=== PATIENT | female | born 1955 | race Caucasian/White ===

== ENCOUNTER 2017-01-24 11:20 | Outpatient (CLI) | payer OTHER ==
[2017-01-24 11:54] LABS: BASOPHILS % (AUTO) 0.1 %; HCT - HEMATOCRIT 38.7 % (37.0-47.0); HGB - HEMOGLOBIN 12.6 g/dL (12.0-16.0); LYMPHOCYTES # (AUTO) 1.3 10^3/uL (1.5-3.5); LYMPHOCYTES % (AUTO) 24.2 %; MEAN CORPUSCULAR HEMOGLOBIN 29.3 pg (27.0-31.0); MEAN CORPUSCULAR HGB CONC 32.6 g/dL (32.0-36.0); MEAN CORPUSCULAR VOLUME 89.8 fL (81.0-99.0); MEAN PLATELET VOLUME 9.9 fL (7.9-10.8); MONOCYTES # (AUTO) 0.5 10^3/uL (0.0-1.0); MONOCYTES % (AUTO) 9.3 %; NEUTROPHILS # (AUTO) 3.5 10^3/uL (1.5-6.6); NEUTROPHILS % (AUTO) 66.4 %; RED BLOOD COUNT 4.31 10^6/uL (4.20-5.40); UNCORRECTED WHITE BLOOD COUNT 5.2 x10^3/uL; WHITE BLOOD COUNT 5.2 x10^3/uL (4.8-10.8)
[2017-01-24 12:07] LABS: HEMOGLOBIN A1C 0.48 g/dL
[2017-01-24 12:30] LABS: ALBUMIN/GLOBULIN RATIO 1.5 (1.0-2.2); BILIRUBIN,TOTAL 0.7 mg/dL (0.2-1.0); BUN - BLOOD UREA NITROGEN 21 mg/dL (6-20); CALCIUM 8.9 mg/dL (8.5-10.3); CARBON DIOXIDE - CO2 29 mmol/L (21-32); CHLORIDE 105 mmol/L (101-111); CHOL/HDL RATIO 4.8 (<4.4); CHOLESTEROL 213 mg/dL; CREATININE 0.7 mg/dL (0.4-1.0); GFR - MDRD 86 (>89); GLUCOSE 98 mg/dL (70-100); HDL CHOLESTEROL 44 mg/dL; LDL/HDL RATIO 3.5 (<4.4); POTASSIUM 3.4 mmol/L (3.5-5.0); SODIUM 140 mmol/L (135-145); TOTAL PROTEIN 6.9 g/dL (6.7-8.2); TRIGLYCERIDES 87 mg/dL; VLDL CHOLESTEROL 17 mg/dL
== END 2017-01-24 11:21 | disposition home or self-care (01) ==
LOC: LAB 11:20
PROVIDERS: ATTEND Family Medicine
DX: Z00.00 Encounter for general adult medical examination without abnormal findings (principal); E78.5 Hyperlipidemia, unspecified
CPT/HCPCS: 36415; 80053; 80061; 83036; 84443; 85025

== ENCOUNTER 2017-01-30 14:17 | Outpatient (CLI) | payer OTHER ==
--- NOTE | 2017-01-31 19:15 | Mammography Report ---
DIGITAL SCREENING MAMMOGRAM: 01/30/2017 CLINICAL INDICATION: A 61-year-old with family history of breast cancer, history of benign left frances st biopsy for screening. COMPARISON: 10/2015, 05/2013. TECHNIQUE: Routine CC and MLO projections were obtained of the breasts. The breasts again demonstrate scattered fibroglandular densities bilaterally. Post-biopsy changes in the left breast are stable. Coarse and punctate, typically benign calcifications are present. No s uspicious masses, clustered microcalcifications, or regions of architectural distortion are identifie d. IMPRESSION: BENIGN FINDINGS. RECOMMENDATION: ROUTINE ANNUAL SCREENING UNLESS OTHERWISE CLINICALLY INDICATED. BIRADS CATEGORY: 2, BENIGN FINDINGS. STANDARD QUALIFYING STATEMENTS 1. This examination was reviewed with the aid of Computed-Aided Detection (CAD). 2. A negative or benign imaging report should not delay biopsy if clinically suspicious findings are present. Consider surgical consultation if warranted. More than 5% of cancers are not identified b y imaging. 3. Dense breasts may obscure an underlying neoplasm. JOB #: [id number] EXT JOB #:[id number]
== END 2017-01-30 14:18 | disposition home or self-care (01) ==
LOC: DI 14:17
PROVIDERS: ATTEND Family Medicine
DX: Z12.39 Encounter for other screening for malignant neoplasm of breast (principal); Z80.3 Family history of malignant neoplasm of breast
CPT/HCPCS: 77067

== ENCOUNTER 2018-04-14 11:30 | Outpatient (CLI) | payer OTHER ==
[2018-04-14 12:14] LABS: HB2 TOTAL 13.6 g/dL; HEMOGLOBIN A1C 0.47 g/dL; HEMOGLOBIN A1C % 5.3 % (4.6-6.2)
[2018-04-14 12:20] LABS: ALBUMIN/GLOBULIN RATIO 1.3 (1.0-2.2); ALKALINE PHOSPHATASE 81 IU/L (42-121); ALT ALANINE AMINOTRANSFERASE 18 IU/L (10-60); AST ASPARTATE AMINOTRANSFERASE 20 IU/L (10-42); BILIRUBIN,TOTAL 0.6 mg/dL (0.2-1.0); BUN - BLOOD UREA NITROGEN 23 mg/dL (6-20); CALCIUM 9.1 mg/dL (8.5-10.3); CARBON DIOXIDE - CO2 30 mmol/L (21-32); CHLORIDE 103 mmol/L (101-111); CHOL/HDL RATIO 4.5 (<4.4); CHOLESTEROL 223 mg/dL; CREATININE 0.7 mg/dL (0.4-1.0); GFR - MDRD 85 (>89); GLUCOSE 97 mg/dL (70-100); HDL CHOLESTEROL 50 mg/dL; LDL CHOLESTEROL,CALCULATED 156 mg/dL; LDL/HDL RATIO 3.1 (<4.4); SODIUM 141 mmol/L (135-145); TOTAL PROTEIN 7.2 g/dL (6.7-8.2); VLDL CHOLESTEROL 17 mg/dL
== END 2018-04-14 11:31 | disposition home or self-care (01) ==
LOC: LAB 11:30
PROVIDERS: ATTEND Family Medicine
DX: R73.01 Impaired fasting glucose (principal); E78.5 Hyperlipidemia, unspecified; F32.9 Major depressive disorder, single episode, unspecified
CPT/HCPCS: 36415; 80053; 80061; 83036; 83721; 84443

== ENCOUNTER 2018-05-01 15:35 | Outpatient (CLI) | payer OTHER | END 2018-05-01 15:36 | disposition home or self-care (01) | LOC: LAB.R 15:35 | PROVIDERS: ATTEND Obstetrics & Gynecology | DX: N76.0 Acute vaginitis (principal) | CPT/HCPCS: 87480; 87510; 87660 ==

== ENCOUNTER 2018-05-09 13:45 | Outpatient (CLI) | payer OTHER ==
--- NOTE | 2018-05-09 15:11 | Mammography Report ---
Reason: BREAST PAIN,LEFT Procedure Date: 05/09/2018 Accession Number: [id number] / [id number] Procedure: POLLO - Diagnostic Dig Bilat CPT Code: FULL RESULT: EXAM: Diagnostic Dig Bilat DATE: 05/09/2018 2:26 PM CLINICAL HISTORY: 8-year-old female with history of early menses and benign breast biopsy in 1989 presents for tenderness on the left arm. Which has resolved since making the appointment. TECHNIQUE: Bilateral breast images in the CC and MLO projection with 2-D and 3-D technique were obtained. COMPARISON: 01/30/2017, 11/08/2015, 05/27/2013. FINDINGS: The breasts demonstrate diffuse fatty replacement bilaterally. There are benign coarse calcifications in the right breast. No mammographic abnormality is identified. There are no suspicious calcifications, masses or architectural distortions bilaterally. Breast ultrasound of the previously tender left arm region was performed which demonstrated normal soft tissues. No sonographic abnormality was identified. IMPRESSION: Benign findings RECOMMENDATION: Recommend routine annual Screening mammography unless otherwise clinically indicated. BIRADS CATEGORY 2: Benign findings STANDARD QUALIFYING STATEMENTS: 1. This examination was not reviewed with the aid of Computer-Aided Detection (CAD). 2. A negative or benign imaging report should not delay biopsy if clinically suspicious findings are present. Consider surgical consultation if warrented. More than 5% of cancers are not identified by imaging. 3. Dense breasts may obscure an underlying neoplasm. 4. This examination was reviewed with the aid of 3D imaging (tomography).
== END 2018-05-09 13:46 | disposition home or self-care (01) ==
LOC: DI 13:45
PROVIDERS: ATTEND Family Medicine
DX: N64.4 Mastodynia (principal)
CPT/HCPCS: 76642; 77066

== ENCOUNTER 2019-03-17 11:39 | Outpatient (CLI) | payer OTHER ==
[2019-03-17 12:07] LABS: HGB - HEMOGLOBIN 12.5 g/dL (12.0-16.0); LYMPHOCYTES # (AUTO) 1.3 10^3/uL (1.5-3.5); LYMPHOCYTES % (AUTO) 26.7 %; MEAN CORPUSCULAR HGB CONC 33.2 g/dL (32.0-36.0); MEAN CORPUSCULAR VOLUME 90.6 fL (81.0-99.0); MEAN PLATELET VOLUME 11.5 fL (7.9-10.8); MONOCYTES # (AUTO) 0.5 10^3/uL (0.0-1.0); NEUTROPHILS % (AUTO) 63.1 %; PLT - PLATELET COUNT 186 10^3/uL (130-450); RED BLOOD COUNT 4.16 10^6/uL (4.20-5.40); RED CELL DISTRIBUTION WIDTH 11.5 % (12.0-15.0); WHITE BLOOD COUNT 4.7 x10^3/uL (4.8-10.8)
[2019-03-17 12:27] LABS: ALBUMIN 3.6 g/dL (3.2-5.5); ALBUMIN/GLOBULIN RATIO 1.2 (1.0-2.2); ALKALINE PHOSPHATASE 78 IU/L (42-121); ALT ALANINE AMINOTRANSFERASE 16 IU/L (10-60); AST ASPARTATE AMINOTRANSFERASE 18 IU/L (10-42); BILIRUBIN,TOTAL 0.6 mg/dL (0.2-1.0); BUN - BLOOD UREA NITROGEN 21 mg/dL (6-20); CALCIUM 8.9 mg/dL (8.5-10.3); CARBON DIOXIDE - CO2 29 mmol/L (21-32); CHLORIDE 110 mmol/L (101-111); CHOL/HDL RATIO 3.9 (<4.4); CHOLESTEROL 164 mg/dL; CREATININE 0.6 mg/dL (0.4-1.0); GFR - MDRD 102 (>89); GLUCOSE 105 mg/dL (70-100); HDL CHOLESTEROL 42 mg/dL; LDL CHOLESTEROL,CALCULATED 96 mg/dL; LDL/HDL RATIO 2.3 (<4.4); SODIUM 142 mmol/L (135-145); TOTAL PROTEIN 6.5 g/dL (6.7-8.2); VLDL CHOLESTEROL 26 mg/dL
[2019-03-17 13:39] LABS: HB2 TOTAL 12.8 g/dL; HEMOGLOBIN A1C 0.45 g/dL; HEMOGLOBIN A1C % 5.4 % (4.6-6.2)
== END 2019-03-17 11:40 | disposition home or self-care (01) ==
LOC: LAB 11:39
PROVIDERS: ATTEND Family Medicine
DX: R73.9 Hyperglycemia, unspecified (principal); E78.5 Hyperlipidemia, unspecified; R53.83 Other fatigue
CPT/HCPCS: 36415; 80053; 80061; 83036; 83721; 84443; 85025

== ENCOUNTER 2019-03-25 08:00 | Outpatient (CLI) | payer OTHER ==
[2019-03-26 13:27] LABS: HEPATITIS C ANTIBODY NON-REACTIVE (NON-REACTIVE)
== END 2019-03-25 23:59 | disposition home or self-care (01) ==
LOC: LAB.WCP 08:00
PROVIDERS: ATTEND Family Medicine
DX: E05.90 Thyrotoxicosis, unspecified without thyrotoxic crisis or storm (principal); Z11.59 Encounter for screening for other viral diseases
CPT/HCPCS: 36415; 84439; 84481; 86803

== ENCOUNTER 2019-06-11 12:23 | Outpatient (CLI) | payer OTHER ==
[2019-06-11 12:41] LABS: HGB - HEMOGLOBIN 11.7 g/dL (12.0-16.0); LYMPHOCYTES # (AUTO) 1.5 10^3/uL (1.5-3.5); LYMPHOCYTES % (AUTO) 27.9 %; MEAN CORPUSCULAR HEMOGLOBIN 27.9 pg (27.0-31.0); MEAN CORPUSCULAR HGB CONC 31.5 g/dL (32.0-36.0); MEAN CORPUSCULAR VOLUME 88.6 fL (81.0-99.0); MEAN PLATELET VOLUME 11.1 fL (7.9-10.8); MONOCYTES # (AUTO) 0.4 10^3/uL (0.0-1.0); MONOCYTES % (AUTO) 7.4 %; NEUTROPHILS # (AUTO) 3.6 10^3/uL (1.5-6.6); NEUTROPHILS % (AUTO) 64.3 %; PLT - PLATELET COUNT 194 10^3/uL (130-450); RED CELL DISTRIBUTION WIDTH 13.3 % (12.0-15.0); WHITE BLOOD COUNT 5.5 x10^3/uL (4.8-10.8)
[2019-06-11 12:53] LABS: ALBUMIN 3.9 g/dL (3.2-5.5); ALBUMIN/GLOBULIN RATIO 1.3 (1.0-2.2); BILIRUBIN,TOTAL 0.7 mg/dL (0.2-1.0); CALCIUM 8.8 mg/dL (8.5-10.3); CREATININE 0.7 mg/dL (0.4-1.0); TOTAL PROTEIN 6.9 g/dL (6.7-8.2)
[2019-06-11 13:10] LABS: THYROID STIMULATING HORMONE < 0.08 uIU/mL (0.34-5.60)
[2019-06-11 13:12] LABS: FREE T4 (FREE THYROXINE) 0.89 ng/dL (0.58-1.64)
== END 2019-06-11 12:24 | disposition home or self-care (01) ==
LOC: LAB 12:23
PROVIDERS: ATTEND Family Medicine
DX: E05.90 Thyrotoxicosis, unspecified without thyrotoxic crisis or storm (principal)
CPT/HCPCS: 36415; 80053; 81599; 83519; 84439; 84443; 85025; 86800

== ENCOUNTER 2019-07-08 11:23 | Outpatient (CLI) | payer OTHER ==
--- NOTE | 2019-07-08 16:31 | XRAY Report ---
Reason: LOW BACK PAIN Procedure Date: 07/08/2019 Accession Number: [id number] / [id number] Procedure: WCP - Lumbar Spine 2 View CPT Code: Final Report FULL RESULT: EXAM: LUMBOSACRAL SPINE RADIOGRAPHY EXAM DATE: 07/08/2019 11:23 AM. CLINICAL HISTORY: LOW BACK PAIN. COMPARISONS: None. TECHNIQUE: 3 views. FINDINGS: Alignment: Minimal scoliosis, the apex is convex to the right centered at L1-L2. No spondylolisthesis. Bones: Five [id number] lumbar vertebral bodies are present. Diminutive ribs are affiliated with the lowest thoracic vertebral bearing the body. No fractures or bone lesions. Disks/Facets: Minimal early endplate disk and facet degenerative changes. Sacroiliac Joints: Unremarkable. Soft Tissues: Large amount of retained stool is incidental. IMPRESSION: 1. Minimal lumbar scoliosis and degenerative changes. 2. Large amount of retained stool. RADIA
== END 2019-07-08 23:59 | disposition home or self-care (01) ==
LOC: DI.WCP 11:23
PROVIDERS: ATTEND Family Medicine
DX: M51.36 Other intervertebral disc degeneration, lumbar region (principal); M41.86 Other forms of scoliosis, lumbar region
CPT/HCPCS: 72100

== ENCOUNTER 2019-08-25 14:56 | Outpatient (CLI) | payer OTHER ==
[2019-08-25 15:51] LABS: THYROID STIMULATING HORMONE < 0.08 uIU/mL (0.34-5.60)
[2019-08-25 15:55] LABS: FREE T4 (FREE THYROXINE) 1.01 ng/dL (0.58-1.64)
== END 2019-08-25 14:57 | disposition home or self-care (01) ==
LOC: LAB 14:56
PROVIDERS: ATTEND Internal Medicine Endocrinology, Diabetes & Metabolism
DX: E05.00 Thyrotoxicosis with diffuse goiter without thyrotoxic crisis or storm (principal)
CPT/HCPCS: 36415; 84439; 84443

== ENCOUNTER 2020-01-07 13:10 | Outpatient (CLI) | payer OTHER ==
[2020-01-07 13:56] LABS: THYROID STIMULATING HORMONE 1.84 uIU/mL (0.34-5.60)
[2020-01-07 13:58] LABS: FREE T4 (FREE THYROXINE) 0.54 ng/dL (0.58-1.64)
== END 2020-01-07 13:11 | disposition home or self-care (01) ==
LOC: LAB 13:10
PROVIDERS: ATTEND Internal Medicine Endocrinology, Diabetes & Metabolism
DX: E05.00 Thyrotoxicosis with diffuse goiter without thyrotoxic crisis or storm (principal)
CPT/HCPCS: 36415; 84439; 84443

== ENCOUNTER 2020-02-08 12:40 | Outpatient (CLI) | payer OTHER ==
[2020-02-08 13:27] LABS: THYROID STIMULATING HORMONE 3.88 uIU/mL (0.34-5.60)
[2020-02-08 13:29] LABS: FREE T4 (FREE THYROXINE) 0.62 ng/dL (0.58-1.64)
== END 2020-02-08 12:41 | disposition home or self-care (01) ==
LOC: LAB 12:40
PROVIDERS: ATTEND Internal Medicine Endocrinology, Diabetes & Metabolism
DX: E05.00 Thyrotoxicosis with diffuse goiter without thyrotoxic crisis or storm (principal)
CPT/HCPCS: 36415; 84439; 84443

== ENCOUNTER 2020-06-06 14:15 | Outpatient (CLI) | payer OTHER ==
[2020-06-06 15:29] LABS: THYROID STIMULATING HORMONE 4.08 uIU/mL (0.34-5.60)
[2020-06-06 15:31] LABS: FREE T4 (FREE THYROXINE) 0.78 ng/dL (0.58-1.64)
== END 2020-06-06 14:16 | disposition home or self-care (01) ==
LOC: LAB 14:15
PROVIDERS: ATTEND Internal Medicine Endocrinology, Diabetes & Metabolism
DX: E05.00 Thyrotoxicosis with diffuse goiter without thyrotoxic crisis or storm (principal)
CPT/HCPCS: 36415; 84439; 84443; 84460

== ENCOUNTER 2020-08-31 15:25 | Outpatient (CLI) | payer OTHER ==
[2020-08-31 16:07] LABS: THYROID STIMULATING HORMONE 2.71 uIU/mL (0.34-5.60)
[2020-08-31 16:09] LABS: FREE T4 (FREE THYROXINE) 0.72 ng/dL (0.58-1.64)
== END 2020-08-31 15:26 | disposition home or self-care (01) ==
LOC: LAB 15:25
DX: E05.00 Thyrotoxicosis with diffuse goiter without thyrotoxic crisis or storm (principal)
CPT/HCPCS: 36415; 84439; 84443

== ENCOUNTER 2020-09-20 12:29 | Outpatient (CLI) | payer OTHER ==
--- NOTE | 2020-09-21 09:37 | Mammography Report ---
BILATERAL DIGITAL SCREENING MAMMOGRAM 3D/2D: 09/20/2020 CLINICAL: Routine screening. Comparison is made to exams dated: 05/09/2018 mammogram, 01/30/2017 mammogram, 11/08/2015 mammogram, a nd 05/27/2013 mammogram - [facility]. There are scattered fibroglandular elements in both breasts. No significant masses, calcifications, or other findings are seen in either breast. There has been no significant interval change. IMPRESSION: NEGATIVE There is no mammographic evidence of malignancy. A 1 year screening mammogram is recommended. This exam was interpreted at Station ID: [id number]. NOTE: For mammograms, a report in lay terms will be sent to the patient. Approximately 15% of breast malignancies will not be visualized mammographically. In the management of a palpable breast mass, a negative mammogram must not discourage biopsy of a clinically suspicious lesion. Electronically Signed By: Luis Antonio Park M.D. ddp/penrad:09/20/2020 16:34:52 ACR BI-RADS Category 1: Negative 3341F PARENCHYMAL PATTERN: (A) - The breast(s) demonstrate(s) scattered fibroglandular densities. BI-RADS CATEGORY: (1) - 1 RECOMMENDATION: (ANNUAL) - Recommend routine annual screening mammography. [id number] 1 year screening LATERALITY: (B)
== END 2020-09-20 12:30 | disposition home or self-care (01) ==
LOC: DI 12:29
DX: Z12.31 Encounter for screening mammogram for malignant neoplasm of breast (principal)

== ENCOUNTER 2020-10-19 08:57 | Outpatient (CLI) | payer OTHER | END 2020-10-19 08:58 | disposition home or self-care (01) | LOC: DI 08:57 | PROVIDERS: ATTEND Family Medicine | DX: I07.1 Rheumatic tricuspid insufficiency (principal); Z82.69 Family history of other diseases of the musculoskeletal system and connective tissue | CPT/HCPCS: 93306 ==

== ENCOUNTER 2020-10-24 16:26 | Emergency (ER) | payer OTHER ==
[2020-10-24 17:39] LABS: BASOPHILS % (AUTO) 0.1 %; HCT - HEMATOCRIT 41.5 % (37.0-47.0); HGB - HEMOGLOBIN 13.5 g/dL (12.0-16.0); LYMPHOCYTES # (AUTO) 0.8 10^3/uL (1.5-3.5); LYMPHOCYTES % (AUTO) 7.6 %; MEAN CORPUSCULAR HEMOGLOBIN 29.7 pg (27.0-31.0); MEAN CORPUSCULAR HGB CONC 32.5 g/dL (32.0-36.0); MEAN CORPUSCULAR VOLUME 91.2 fL (81.0-99.0); MEAN PLATELET VOLUME 11.1 fL (7.9-10.8); MONOCYTES # (AUTO) 0.5 10^3/uL (0.0-1.0); MONOCYTES % (AUTO) 4.5 %; NEUTROPHILS # (AUTO) 9.6 10^3/uL (1.5-6.6); NEUTROPHILS % (AUTO) 87.4 %; PLT - PLATELET COUNT 206 10^3/uL (130-450); RED BLOOD COUNT 4.55 10^6/uL (4.20-5.40); RED CELL DISTRIBUTION WIDTH 12.6 % (12.0-15.0)
[2020-10-24 17:52] LABS: ALBUMIN 4.4 g/dL (3.2-5.5); ALBUMIN/GLOBULIN RATIO 1.4 (1.0-2.2); BILIRUBIN,TOTAL 0.7 mg/dL (0.2-1.0); CALCIUM 9.1 mg/dL (8.5-10.3); CREATININE 0.7 mg/dL (0.4-1.0); POTASSIUM 3.9 mmol/L (3.5-5.0); TOTAL PROTEIN 7.6 g/dL (6.7-8.2)
[2020-10-24 18:26] LABS: BILIRUBIN,URINE NEGATIVE (NEGATIVE); GLUCOSE, URINE (UA) NEGATIVE (NEGATIVE); KETONES,URINE (UA) 15 mg/dL (NEGATIVE); LEUKOCYTE ESTERASE, URINE NEGATIVE (NEGATIVE); NITRITE,URINE NEGATIVE (NEGATIVE); OCCULT BLOOD,URINE NEGATIVE (NEGATIVE); PROTEIN,URINE NEGATIVE (NEGATIVE); UROBILINOGEN,URINE 0.2 (NORMAL) E.U./dL (NORMAL)
--- NOTE | 2020-10-24 18:26 | ED Physician Documentation ---
History of Present Illness - Stated complaint Stated Complaint: ABD PX,NAUSEA - Chief complaint Chief Complaint: Abd Pain - Additonal information Additional information: 64-year-old female presents the emergency department for evaluation of vomiting twice as well as at least 8 episodes of nonbloody diarrhea today. She expresses generalized abdominal discomfort. She denies fevers, cough chest pain or shortness of air. However she is concerned that these abdominal symptoms may be Covid related. She has however vaccinated with the [employer] vaccine. Patient reports that she had a small bowel obstruction about 8 years ago that was managed conservatively. Had a colonoscopy at 62 years of age without any concerning findings. Review of Systems Constitutional: denies: Fever, Chills Eyes: reports: Reviewed and negative Ears: reports: Reviewed and negative Nose: reports: Reviewed and negative Throat: reports: Reviewed and negative Cardiac: reports: Reviewed and negative Respiratory: reports: Reviewed and negative GI: reports: Abdominal Pain, Nausea, Vomiting, Diarrhea. denies: Hematemesis, Bloody / black stool : denies: Dysuria, Frequency, Hesitancy Skin: denies: Rash, Lesions Musculoskeletal: reports: Reviewed and negative PD PAST MEDICAL HISTORY - Past Medical History Cardiovascular: None Respiratory: Asthma Endocrine/Autoimmune: None GI: None : None HEENT: None Psych: Depression Musculoskeletal: None Derm: None Other Past Medical History: graves disease. hyperthyroid. asthma. ?muscular dystrophy. 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: Hysterectomy, Oophrectomy - Present Medications Home Medications: Ambulatory Orders Medication Instructions Recorded Confirmed Citalopram [CeleXA] 20 mg PO DAILY 07/08/13 10/24/20 diphenhydrAMINE HCl [Benadryl] 25 mg PO PRN PRN 07/09/13 10/24/20 Albuterol Sulf [Ventolin Hfa 1 puffs PO PRN PRN 10/24/20 10/24/20 Inhaler] Ondansetron Odt [Zofran] 4 mg TL Q6H PRN #10 tablet 10/24/20 methIMAzole [Tapazole] 7 mg PO 0800 10/24/20 10/24/20 - Allergies Allergies/Adverse Reactions: Allergies Allergy/AdvReac Type Severity Reaction Status Date / Time No Known Drug Allergies Allergy Verified 10/24/20 16:39 - Social History Does the pt smoke?: No Smoking Status: Never smoker PD ED PE NORMAL - General General: Alert and oriented X 3, No acute distress - Neck Neck: Supple, no meningeal sign, No adenopathy - Cardiac Cardiac: RRR, No murmur - Respiratory Respiratory: Clear bilaterally - Abdomen Abdomen: Soft, Non distended. No: Normal bowel sounds (hyperactive), Non tender (generalized non focal tenderness) Results - Vitals Vitals: Vital Signs - 24 hr 10/24/20 16:37 Temperature 36.7 C Heart Rate 79 Respiratory 16 Rate Blood Pressure 130/73 O2 Saturation 96 Oxygen O2 Source Room air - Labs Labs: Laboratory Tests 10/24/20 10/24/20 10/24/20 17:34 17:34 18:04 WBC 11.0 H RBC 4.55 Hgb 13.5 Hct 41.5 MCV 91.2 MCH 29.7 MCHC 32.5 RDW 12.6 Plt Count 206 MPV 11.1 H Neut # (Auto) 9.6 H Lymph # (Auto) 0.8 L [place] # (Auto) 0.5 Eos # (Auto) 0.0 Baso # (Auto) 0.0 Absolute Nucleated RBC 0.00 Nucleated RBC % 0.0 Sodium 140 Potassium 3.9 Chloride 104 Carbon Dioxide 27 Anion Gap 9.0 BUN 20 Creatinine 0.7 Estimated GFR (MDRD) 85 L Glucose 117 H Calcium 9.1 Total Bilirubin 0.7 AST 19 ALT 17 Alkaline Phosphatase 107 Total Protein 7.6 Albumin 4.4 Globulin 3.2 Albumin/Globulin Ratio 1.4 Lipase 27 Urine Color YELLOW Urine Clarity CLEAR Urine pH 6.0 Ur Specific [place] >=1.030 H Urine Protein NEGATIVE Urine Glucose (UA) NEGATIVE Urine Ketones 15 H Urine Occult Blood NEGATIVE Urine Nitrite NEGATIVE Urine Bilirubin NEGATIVE Urine Urobilinogen 0.2 (NORMAL) Ur Leukocyte Esterase NEGATIVE Ur Microscopic Review NOT INDICATED Urine Culture Comments NOT INDICATED - Rads (name of study) CT abd Radiology: Final report received (Areas of bowel wall thickening in the small and large bowel could represent a nonspecific enterocolitis. Borderline size fluid-filled loops of bowel in central abdomen without a well-defined transition point could be related to interval right is or less likely a partial or developing SBO. 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 She has had at least 8-10 watery stools today. All nonbloody. No fevers. She vomited once yesterday. She does report a history of a small bowel obstruction about 10 years ago that was managed conservatively with nasogastric tube. On presentation she has some generalized but minimal abdominal tenderness without guarding or rebound. Screening labs reveal a very minimal leukocytosis and her electrolytes are otherwise unremarkable. However given the history of previous SBO we did proceed to do a CT of the abdomen and pelvis which revealed likely enterocolitis. However in early or partial developing SBO could not be ruled out. There was an incidental finding of diverticulosis as well as a trace amount of free fluid in the pelvis likely reactive. I did discuss this case briefly on the phone with Dr. Calderon our on-call surgeon. Given the history at with the diarrhea she feels that this is more likely a bad gastroenteritis and would recommend stool studies including C. difficile. She does not feel that the patient clinically has a bowel obstruction based on the history and exam I discussed. She would recommend good hydration at home. With emergent return precautions discussed. Departure - Departure Disposition: 01 Home, Self Care Clinical Impression: Enterocolitis Condition: Stable Record reviewed to determine appropriate education?: Yes Instructions: Diarrhea Follow-Up: Nick Samuels DO [Primary Care Provider] - Prescriptions: Ondansetron Odt [Zofran] 4 mg TL Q6H PRN #10 tablet PRN Reason: Nausea / Vomiting Comments: Viviana hope that you are feeling better soon. You were seen in the emergency department today for fairly severe diarrhea. As we discussed your screening labs did not show any worrisome abnormalities. We did do a CT of the abdomen and it suggest that you likely have enterocolitis which is the medical term for inflammation of the large and small intestine. Typically this is due to a virus but occasionally bacteria can cause it as well. We are sending your stool to check for atypical bacteria that can cause bad diarrhea. If your stool studies are positive we will call you and notify you immediately. As we also discussed the CT scan suggested the possibility of a very early small bowel obstruction. However I did discuss this with our on-call surgeon and she feels this is less likely. It is important that you stay well-hydrated. Please drink water fluids and electrolytes like broth or half-strength Gatorade frequently. I have prescribed some Zofran which is a nausea medicine to help prevent vomiting at home. If at any point you feel that your diarrhea is worsening, you have fevers, bloody stools, severe or different abdominal pain or uncontrolled vomiting please return immediately to the emergency department.
[2020-10-24] MEDS ORDERED: SODIUM CHLORIDE 0.9% 1,000 ML IV STA (18:27)
[2020-10-24] MEDS ORDERED: ONDANSETRON 4 MG/2 ML VIAL IVP STA (18:27)
[2020-10-24 18:28] LABS: CLARITY,URINE CLEAR (CLEAR)
[2020-10-24] MEDS ORDERED: IOPAMIDOL-300 100 ML VIAL ONE (18:28)
--- NOTE | 2020-10-24 19:37 | CT Report ---
PROCEDURE: Abdomen/Pelvis W INDICATIONS: diarrhea, generalized abdominal pain CONTRAST: IV CONTRAST: Isovue 300 ml: 100 PO CONTRAST: *NO PO CONTRAST TECHNIQUE: After the administration of intravenous contrast, 5 mm thick sections acquired from the diaphragms to the symphysis. 5 mm thick coronal and sagittal reformats were acquired. For radiation dose reducti on, the following was used: automated exposure control, adjustment of mA and/or kV according to mandy ent size. COMPARISON: None. FINDINGS: Image quality: Excellent. ABDOMEN: Lung bases: Lung bases are clear. Heart size is normal. Solid organs: Liver and spleen are normal in size and enhancement. Gallbladder appears normal. Cl iary system is non dilated. Pancreas enhances normally. No adrenal nodules. Kidneys demonstrate no rmal size and enhancement, without hydronephrosis. Peritoneum and bowel: A few diverticula are seen in the colon without signs of acute diverticulitis. There is mild diffuse colonic wall thickening or underdistention. Prominent fluid-filled loops of bow el are seen throughout the central abdomen without a well-defined transition point to nondilated elham l. Short segments of bowel wall thickening are seen in the left abdomen. Nodes and vessels: No retroperitoneal or mesenteric adenopathy by size criteria. Aorta and inferior vena cava are normal in size. Miscellaneous: No ventral hernias. PELVIS: Genitourinary: Bladder wall thickness is normal. Miscellaneous: No inguinal hernias or adenopathy. Bones: No suspicious bony lesions. No vertebral body compression fractures. IMPRESSION: 1. Areas of bowel wall thickening in the small and large bowel could represent a nonspecific enteroc olitis. Borderline size of fluid-filled loops of small bowel in the central abdomen without a well-de fined transition point could be related to enteritis or less likely a partial or developing small bow el obstruction. 2. Colonic diverticulosis without signs of acute diverticulitis. 3. Trace free fluid in the pelvis is most likely reactive. Reviewed by: Vaughn Bacon MD on 10/24/2020 7:35 PM PDT Approved by: Vaughn Bacon MD on 10/24/2020 7:35 PM PDT Station ID: [id number]
[2020-10-24 20:06] VITALS: BP 135/72
[2020-10-24] MEDS ORDERED: IOPAMIDOL-300 100 ML VIAL IVP ONE (20:40)
== END 2020-10-24 20:07 | disposition home or self-care (01) ==
LOC: ED 16:26
DX: K52.9 Noninfective gastroenteritis and colitis, unspecified (principal); K57.30 Diverticulosis of large intestine without perforation or abscess without bleeding; Z87.19 Personal history of other diseases of the digestive system; Z20.822 Contact with and (suspected) exposure to COVID-19
CPT/HCPCS: 36415; 74177; 80053; 81003; 83690; 85025; 87635; 99283; 99284; Q9967; 81001; 87086

== ENCOUNTER 2021-02-07 12:20 | Outpatient (CLI) | payer OTHER ==
[2021-02-07 13:02] LABS: THYROID STIMULATING HORMONE 3.53 uIU/mL (0.34-5.60)
[2021-02-07 13:06] LABS: FREE T4 (FREE THYROXINE) 0.86 ng/dL (0.58-1.64)
== END 2021-02-07 12:21 | disposition home or self-care (01) ==
LOC: LAB 12:20
PROVIDERS: ATTEND Internal Medicine Endocrinology, Diabetes & Metabolism
DX: E05.00 Thyrotoxicosis with diffuse goiter without thyrotoxic crisis or storm (principal)
CPT/HCPCS: 36415; 84439; 84443; 84460

== ENCOUNTER 2021-05-18 15:52 | Outpatient (CLI) | payer OTHER ==
[2021-05-18 16:41] LABS: THYROID STIMULATING HORMONE 3.9 uIU/mL (0.34-5.60)
[2021-05-18 16:43] LABS: FREE T4 (FREE THYROXINE) 0.64 ng/dL (0.58-1.64)
== END 2021-05-18 15:53 | disposition home or self-care (01) ==
LOC: LAB 15:52
PROVIDERS: ATTEND Internal Medicine
DX: E05.00 Thyrotoxicosis with diffuse goiter without thyrotoxic crisis or storm (principal)
CPT/HCPCS: 36415; 81599; 84439; 84443; 84445

== ENCOUNTER 2021-07-31 08:00 | Outpatient (CLI) | payer OTHER ==
[2021-08-01 00:35] LABS: BACTERIAL VAGINOSIS DNA NEGATIVE (NEGATIVE); CANDIDA GLABRATA DNA NEGATIVE (NEGATIVE); CANDIDA GROUP DNA NEGATIVE (NEGATIVE); CANDIDA KRUSEI DNA NEGATIVE (NEGATIVE); TRICHOMONAS VAGINALIS DNA NEGATIVE (NEGATIVE)
== END 2021-07-31 23:59 | disposition home or self-care (01) ==
LOC: LAB.N 08:00
PROVIDERS: ATTEND Physician Assistant
DX: N76.0 Acute vaginitis (principal)
CPT/HCPCS: 87086; 87661; 87801

== ENCOUNTER 2021-11-15 17:01 | Outpatient (CLI) | payer OTHER ==
[2021-11-15 17:15] LABS: HCT - HEMATOCRIT 37.7 % (37.0-47.0); HGB - HEMOGLOBIN 12.3 g/dL (12.0-16.0); LYMPHOCYTES # (AUTO) 1.4 10^3/uL (1.5-3.5); LYMPHOCYTES % (AUTO) 23.8 %; MEAN CORPUSCULAR HEMOGLOBIN 30.2 pg (27.0-31.0); MEAN CORPUSCULAR HGB CONC 32.6 g/dL (32.0-36.0); MEAN CORPUSCULAR VOLUME 92.6 fL (81.0-99.0); MEAN PLATELET VOLUME 10.9 fL (7.9-10.8); MONOCYTES # (AUTO) 0.4 10^3/uL (0.0-1.0); MONOCYTES % (AUTO) 6.3 %; NEUTROPHILS # (AUTO) 4.2 10^3/uL (1.5-6.6); NEUTROPHILS % (AUTO) 69.7 %; PLT - PLATELET COUNT 181 10^3/uL (130-450); RED BLOOD COUNT 4.07 10^6/uL (4.20-5.40); RED CELL DISTRIBUTION WIDTH 12.5 % (12.0-15.0); WHITE BLOOD COUNT 6.1 x10^3/uL (4.8-10.8)
[2021-11-15 17:30] LABS: ALBUMIN 4.2 g/dL (3.2-5.5); ALBUMIN/GLOBULIN RATIO 1.4 (1.0-2.2); BILIRUBIN,TOTAL 0.5 mg/dL (0.2-1.0); CALCIUM 8.9 mg/dL (8.5-10.3); CREATININE 0.8 mg/dL (0.4-1.0); POTASSIUM 3.4 mmol/L (3.5-5.0); TOTAL PROTEIN 7.3 g/dL (6.7-8.2); URIC ACID 4.9 mg/dL (2.6-7.2)
[2021-11-15 17:46] LABS: THYROID STIMULATING HORMONE 2.97 uIU/mL (0.34-5.60)
[2021-11-15 17:47] LABS: FREE T3 3.09 pg/mL (2.5-3.9)
== END 2021-11-15 17:02 | disposition home or self-care (01) ==
LOC: LAB 17:01
PROVIDERS: ATTEND Family Medicine
DX: R10.11 Right upper quadrant pain (principal); E05.90 Thyrotoxicosis, unspecified without thyrotoxic crisis or storm; M79.675 Pain in left toe(s)
CPT/HCPCS: 36415; 80053; 83690; 84443; 84481; 84550; 85025

== ENCOUNTER 2021-11-16 16:47 | Outpatient (CLI) | payer OTHER ==
--- NOTE | 2021-11-16 19:03 | Ultrasound Report ---
PROCEDURE: Abdomen Complete INDICATIONS: RUQ ABDOMEN PAIN TECHNIQUE: Real-time scanning was performed of the abdominal and retroperitoneal organs, with image documentatio n. COMPARISON: None. FINDINGS: Liver: Liver is normal in size. Increased liver parenchymal echotexture is seen. Normal hepatopedal flow is seen in the main portal vein. Gallbladder: There is no gallstone. No gallbladder wall thickening or pericholecystic fluid. No sonog raphic Morgan's sign. Biliary ducts: Intrahepatic bile ducts are non-dilated. Extrahepatic bile duct caliber measures 5.9 mm. Normal is 6-7 mm or less in diameter, or 10 mm or less post-cholecystectomy. Pancreas: Visualized portions of the pancreas are sonographically normal. Spleen: Spleen is normal in size and homogeneous in echotexture. Kidneys: Kidneys are normal in size and echotexture. Right kidney measures 9.2 cm long; left kidney measures 9.6 cm long. No hydronephrosis . Bilateral nonobstructing renal calculi are seen measures up to 2 mm in size. No solid masses. Aorta: Visualized aorta is normal in caliber at less than 3 cm. Iliacs: Proximal common iliac arteries are normal in caliber at less than 2.5 cm. IVC: Intrahepatic inferior vena cava is patent. Miscellaneous: No free abdominal fluid. IMPRESSION: 1. Hepatic steatosis. No discrete hepatic lesion. Normal appearing gallbladder. No biliary ductal dil atation. 2. Normal appearing spleen and pancreas. 3. Tiny bilateral nonobstructing renal calculi. No hydronephrosis or solid appearing renal lesion. Reviewed by: Stewart Oneill MD on 11/16/2021 7:01 PM PDT Approved by: Stewart Oneill MD on 11/16/2021 7:01 PM PDT Station ID: [id number]
== END 2021-11-16 16:48 | disposition home or self-care (01) ==
LOC: DI 16:47
PROVIDERS: ATTEND Family Medicine
DX: R10.11 Right upper quadrant pain (principal); K76.0 Fatty (change of) liver, not elsewhere classified

== ENCOUNTER 2021-11-29 14:10 | Outpatient (CLI) | payer OTHER ==
--- NOTE | 2021-11-29 16:09 | XRAY Report ---
PROCEDURE: Hips 3-4V BILAT INDICATIONS: HIP PAIN BILATERAL TECHNIQUE: 3 views of the hip were acquired. COMPARISON: None FINDINGS: Bones: No fractures or dislocations. No suspicious bony lesions. The visualized pelvic ring appear s intact. Mild bilateral acetabular joint space narrowing is greater in the left Soft tissues: No suspicious soft tissue calcifications or masses. IMPRESSION: Mild bilateral osteoarthritis. No marginal osteophyte Reviewed by: Jericho Robertson MD on 11/29/2021 3:08 PM [email or web address] Approved by: Jericho Robertson MD on 11/29/2021 3:08 PM AKDT Station ID: [id number]
--- NOTE | 2021-12-12 11:58 | XRAY Report ---
PROCEDURE: Foot 3 View LT INDICATIONS: Toe pain. TECHNIQUE: 3 views of the foot were acquired. COMPARISON: None. FINDINGS: Bones: Acute fracture visualized. No subluxations. Moderate first MTP joint DJD. A small plantar calc aneal spur is present. Soft tissues: No tibiotalar joint effusion. Achilles tendon appears unremarkable. IMPRESSION: 1. No acute fracture visualized. 2. Degenerative changes at the first MTP joint. Reviewed by: Vaughn Gipson MD on 11/29/2021 4:21 PM PDT Approved by: Vaughn Gipson MD on 11/29/2021 4:21 PM PDT Station ID: [id number]
== END 2021-11-29 14:11 | disposition home or self-care (01) ==
LOC: DI 14:10
PROVIDERS: ATTEND Family Medicine
DX: M16.0 Bilateral primary osteoarthritis of hip (principal); M19.072 Primary osteoarthritis, left ankle and foot

== ENCOUNTER 2023-04-15 11:43 | Outpatient (CLI) | payer MEDICARE, OTHER ==
[2023-04-15 11:57] LABS: HCT - HEMATOCRIT 37.7 % (37.0-47.0); HGB - HEMOGLOBIN 12.2 g/dL (12.0-16.0); LYMPHOCYTES # (AUTO) 1.4 10^3/uL (1.5-3.5); LYMPHOCYTES % (AUTO) 25.8 %; MEAN CORPUSCULAR HEMOGLOBIN 29.5 pg (27.0-31.0); MEAN CORPUSCULAR HGB CONC 32.4 g/dL (32.0-36.0); MEAN CORPUSCULAR VOLUME 91.1 fL (81.0-99.0); MONOCYTES # (AUTO) 0.4 10^3/uL (0.0-1.0); MONOCYTES % (AUTO) 8.2 %; NEUTROPHILS # (AUTO) 3.5 10^3/uL (1.5-6.6); NEUTROPHILS % (AUTO) 65.6 %; PLT - PLATELET COUNT 193 10^3/uL (130-450); RED BLOOD COUNT 4.14 10^6/uL (4.20-5.40); RED CELL DISTRIBUTION WIDTH 12.9 % (12.0-15.0); WHITE BLOOD COUNT 5.4 x10^3/uL (4.8-10.8)
[2023-04-15 12:11] LABS: ALBUMIN 4.1 g/dL (3.2-5.5); ALBUMIN/GLOBULIN RATIO 1.6 (1.0-2.2); ALKALINE PHOSPHATASE 82 IU/L (42-121); ALT ALANINE AMINOTRANSFERASE 10 IU/L (10-60); AST ASPARTATE AMINOTRANSFERASE 14 IU/L (10-42); BILIRUBIN,TOTAL 0.4 mg/dL (0.2-1.0); BUN - BLOOD UREA NITROGEN 19 mg/dL (6-20); CALCIUM 8.9 mg/dL (8.5-10.3); CARBON DIOXIDE - CO2 31 mmol/L (21-32); CHLORIDE 107 mmol/L (101-111); CHOL/HDL RATIO 5.2 (<4.4); CHOLESTEROL 223 mg/dL; CREATININE 0.7 mg/dL (0.6-1.3); GFR - MDRD 84 (>89); GLUCOSE 92 mg/dL (74-104); HDL CHOLESTEROL 43 mg/dL; LDL CHOLESTEROL,CALCULATED 143 mg/dL; LDL/HDL RATIO 3.3 (<4.4); POTASSIUM 3.7 mmol/L (3.5-4.5); SODIUM 141 mmol/L (135-145); TOTAL PROTEIN 6.7 g/dL (6.4-8.9); TRIGLYCERIDES 185 mg/dL (48-352); VLDL CHOLESTEROL 37 mg/dL
[2023-04-15 12:52] LABS: THYROID STIMULATING HORMONE 2.77 uIU/mL (0.34-5.60)
== END 2023-04-15 11:44 | disposition home or self-care (01) ==
LOC: LAB 11:43
PROVIDERS: ATTEND Physician Assistant
DX: R10.11 Right upper quadrant pain (principal); Z13.220 Encounter for screening for lipoid disorders; E05.90 Thyrotoxicosis, unspecified without thyrotoxic crisis or storm
CPT/HCPCS: 36415; 80053; 80061; 83721; 84443; 85025